=== PATIENT | male | born 1965 | race Caucasian/White ===

== ENCOUNTER 2019-06-01 03:05 | Emergency (ER) | payer OTHER, MEDICARE ==
[2019-06-01] MEDS ORDERED: Sodium Chloride 0.9% 1,000 ML IV ONE (03:37)
--- NOTE | 2019-06-01 03:48 | EDM.PDOC ---
ED HPI GENERAL MEDICAL PROBLEM - General Chief Complaint: Lower Extremity Injury/Pain Stated Complaint: [facility] Time Seen by Provider: 06/01/19 03:05 Source of Information: Reports: Patient, EMS History Limitations: Reports: No Limitations - History of Present Illness INITIAL COMMENTS - FREE TEXT/NARRATIVE: Arrival to ER. Patient fell on the ice about 1 hour prior to arrival. He had been drinking. He says he had consumed about 12 [place] [address]'s. Risk factor is alcohol intoxication. Treatment prior to arrival supportive care by EMS. The patient did notice that his foot was turned to 90 degrees and he straightened it himself. Left Ankle Pain Score (Numeric/FACES): 8 - Related Data Allergies Allergy/AdvReac Type Severity Reaction Status Date / Time No Known Allergies Allergy Verified 06/01/19 03:10 Home Meds: Home Meds . [No Known Home Meds] 06/01/19 [History] Past Medical History - History Comment History Comment: Denies any chronic medical problems or serious illnesses. Takes no medications. Had orthopedic procedures in the past. Knee surgeries. At age 6 reconstruction after a facial injury. Social & Family History - Tobacco Use Smoking Status *Q: Current Every Day Smoker Years of Tobacco use: 35 Packs/Tins Daily: 1 - Caffeine Use Caffeine Use: Reports: Coffee - Recreational Drug Use Recreational Drug Use: No Review of Systems - Review of Systems Review Of Systems: Comprehensive ROS is negative, except as noted in HPI. ED EXAM, GENERAL - Physical Exam Exam: See Below Exam Limited By: No Limitations General Appearance: Alert, WD/WN, No Apparent Distress (But uncomfortable due to his injury) Eye Exam: Bilateral Eye: PERRL Ears: Normal External Exam Nose: Normal Inspection Throat/Mouth: Normal Inspection Head: Atraumatic, Normocephalic, Other (SCARS across face from old injury) Neck: Supple, Non-Tender Respiratory/Chest: No Respiratory Distress, Lungs Clear Cardiovascular: Regular Rate, Rhythm GI/Abdominal: Soft, Non-Tender Back Exam: Normal Inspection Extremities: Other (Left ankle with displaced foot to about 90 degrees and completely unstable. There is a large open area medial malleolar area with bones exposed. Fortunately there is a bounding dorsalis pedis pulse. Left foot left ankle.) Neurological: Alert, Oriented Psychiatric: Normal Affect Skin Exam: Warm, Dry Course - Vital Signs Text/Narrative:: The area of injury was exposed washed out with sterile normal saline and the ankle was reduced with traction. As the patient was quite intoxicated we did not wish to do conscious sedation and he tolerated this reasonably well. A long posterior splint was placed. Patient requires a higher level of care with orthopedics not available here. He was accepted in transfer to [facility] in [place] by Dr. Wesley ER to ER transfer. Last Recorded V/S: Last Vital Signs Temp 36.2 C 06/01/19 03:11 Pulse 91 06/01/19 03:11 Resp 17 06/01/19 03:11 BP 127/93 H 06/01/19 03:11 Pulse Ox 94 L 06/01/19 03:11 - Orders/Labs/Meds Orders: Active Orders 24 hr Category Date Time Status Ankle 2V Lt [CR] Stat Exams 06/01/19 03:36 Ordered Ankle 2V Lt [CR] Stat Exams 06/01/19 03:36 Ordered Blood Alcohol [ETHANOL BLOOD MEDICAL] [CHEM] Stat Lab 06/01/19 03:39 Ordered CBC WITH AUTO DIFF [HEME] Stat Lab 06/01/19 03:39 Ordered COMPREHENSIVE METABOLIC PN,CMP [CHEM] Stat Lab 06/01/19 03:38 Ordered DRUG SCREEN, URINE [URCHEM] Stat Lab 06/01/19 03:38 Ordered UA RFX DARELL AND CULT IF INDIC [URIN] Stat Lab 06/01/19 03:38 Ordered Sodium Chloride 0.9% [Normal Saline] 1,000 ml Med 06/01/19 03:37 Ordered IV ONETIME Medication Orders Sodium Chloride (Normal Saline) 1,000 mls @ 1,000 mls/hr IV ONETIME ONE Stop: 06/01/19 04:36 Meds: Medications Generic Name Dose Route Start Last Admin Trade Name Freq PRN Reason Stop Dose Admin Sodium Chloride 1,000 mls @ 1,000 mls/hr 06/01/19 03:37 Normal Saline IV 06/01/19 04:36 ONETIME ONE Departure - Departure Time of Disposition: 03:54 Disposition: DC/Tfer to [facility] 02 Clinical Impression: Open fracture dislocation of ankle Qualifiers: Encounter type: initial encounter Open fracture type: open type III Laterality : left Qualified Code(s): S82.892C - Other fracture of left lower leg, initial encounter for open fracture type IIIA, IIIB, or IIIC - Discharge Information Sepsis Event Note - Evaluation Sepsis Screening Result: No Definite Risk - Focused Exam Vital Signs: Vital Signs Temp Pulse Resp BP Pulse Ox 06/01/19 03:11 36.2 C 91 17 127/93 H 94 L Date Exam was Performed: 06/01/19 Time Exam was Performed: 03:42 - My Orders Last 24 Hours: My Active Orders 06/01/19 03:36 Ankle 2V Lt [CR] Stat Ankle 2V Lt [CR] Stat 06/01/19 03:37 Sodium Chloride 0.9% [Normal Saline] 1,000 ml IV ONETIME 06/01/19 03:38 COMPREHENSIVE METABOLIC PN,CMP [CHEM] Stat DRUG SCREEN, URINE [URCHEM] Stat UA RFX DARELL AND CULT IF INDIC [URIN] Stat 06/01/19 03:39 Blood Alcohol [ETHANOL BLOOD MEDICAL] [CHEM] Stat CBC WITH AUTO DIFF [HEME] Stat - Assessment/Plan Last 24 Hours: My Active Orders 06/01/19 03:36 Ankle 2V Lt [CR] Stat Ankle 2V Lt [CR] Stat 06/01/19 03:37 Sodium Chloride 0.9% [Normal Saline] 1,000 ml IV ONETIME 06/01/19 03:38 COMPREHENSIVE METABOLIC PN,CMP [CHEM] Stat DRUG SCREEN, URINE [URCHEM] Stat UA RFX DARELL AND CULT IF INDIC [URIN] Stat 06/01/19 03:39 Blood Alcohol [ETHANOL BLOOD MEDICAL] [CHEM] Stat CBC WITH AUTO DIFF [HEME] Stat
[2019-06-01] MEDS ORDERED: Diphtheria,Pertussis(Acell),Tetanus Vaccine 0.5 ML Syringe IM ONE (04:01)
[2019-06-01] MEDS ORDERED: ceFAZolin 2 GM in Premix Bag 1 BAG IV ONE (04:08)
--- NOTE | 2019-06-02 07:16 | CR ---
Left ankle: Two views of the left ankle were obtained. Displaced bimalleolar fracture is noted with dislocation of the tibiotalar joint. Soft tissue injury is seen. Impression: 1. Displaced bimalleolar fracture with dislocation. 2. Soft tissue injury. Diagnostic code #5 This report was dictated in [place] Standard Time
--- NOTE | 2019-06-02 07:16 | CR ---
Left ankle: Two views of the left ankle were obtained. Comparison: Previous left ankle study performed earlier on same day (2:59 AM). Dislocation has been reduced. Continued subluxation of the tibia in a medial direction. Bimalleolar fractures are again noted showing continued displacement. Small bone fragment is noted off the anterior ankle joint believed to represent small displaced fracture fragment off the anterior tibia. Fiberglass splint is in place. No additional abnormality is seen other than soft tissue swelling. Impression: 1. Dislocation has been reduced with persistent subluxation as noted above. 2. Displaced bimalleolar fractures again noted with probable small displaced fracture fragment off the anterior tibia. Diagnostic code #3 This report was dictated in [place] Standard Time
== END 2019-06-01 04:35 ==
LOC: JD.ED 03:05
DX: S82.842C Displaced bimalleolar fracture of left lower leg, initial encounter for open fracture type IIIA, IIIB, or IIIC (principal); Z23 Encounter for immunization; F17.210 Nicotine dependence, cigarettes, uncomplicated; W00.0XXA Fall on same level due to ice and snow, initial encounter
CPT/HCPCS: 27840; 36415; 73600; 80053; 80306; 80320; 81003; 85025; 90471; 90715; 96365; 99285; J0690; J7030; 27818; 99283; G0480

== ENCOUNTER 2022-06-27 07:15 | Day surgery (SDC) | payer MEDICARE, MEDICAID ==
[~2022-06-27 07:15] MED LIST: Lactated Ringers 1,000 ML IV SCH; Lidocaine 1%/Sod Bicarbonate in NS 8.4% 1 ML Syringe IDERM PRN; Sodium Chloride 0.9% 10 ML Syringe FLUSH PRN; Sodium Chloride 0.9% 10 ML Syringe FLUSH SCH
[2022-06-27] MEDS ORDERED: Lidocaine 1% 2 ML ONE (08:16)
[2022-06-27] MEDS ORDERED: fentaNYL 100 MCG/2 ML SDV ONE (08:16)
[2022-06-27] MEDS ORDERED: Midazolam 1 MG/ML 2 ML SDV ONE (08:17)
[2022-06-27] MEDS ORDERED: Propofol 200 MG/20 ML SDV ONE (08:17)
== END 2022-06-27 09:45 | disposition home or self-care (01) ==
LOC: JD.SDS 07:15
PROVIDERS: ATTEND Surgery
DX: K22.89 Other specified disease of esophagus (principal); C15.9 Malignant neoplasm of esophagus, unspecified; I49.9 Cardiac arrhythmia, unspecified; K21.9 Gastro-esophageal reflux disease without esophagitis; M19.90 Unspecified osteoarthritis, unspecified site; Z87.891 Personal history of nicotine dependence; Z98.890 Other specified postprocedural states
CPT/HCPCS: 43239; J2250; J2704; J3010; J7120; J3490

== ENCOUNTER 2022-07-07 20:45 | Emergency (ER) | payer MEDICARE, MEDICAID ==
[2022-07-07] MEDS ORDERED: Sodium Chloride 0.9% 10 ML Syringe FLUSH PRN (22:06)
[2022-07-07] MEDS ORDERED: Ondansetron 4 MG/2 ML SDV IVPUSH ONE (22:06)
[2022-07-07] MEDS ORDERED: Lactated Ringers 1,000 ML IV SCH (22:15)
== END 2022-07-08 02:04 | disposition home or self-care (01) ==
LOC: JD.ED 20:45
DX: R10.84 Generalized abdominal pain (principal); R10.31 Right lower quadrant pain; Z87.891 Personal history of nicotine dependence
CPT/HCPCS: 36415; 74019; 80053; 85025; 85610; 96361; 96374; 99284; J2405; J3490; J7120; 99283

== ENCOUNTER 2022-08-30 02:52 | Inpatient (IN) | payer MEDICARE, MEDICAID ==
[2022-08-30 03:57] LABS: ESTIMATED GFR 58 mL/min (>60)
[2022-08-30] MEDS ORDERED: Morphine 2 MG/ML SYRINGE IVPUSH ONE (12:14)
[2022-08-30] MEDS ORDERED: Scopolamine 1.5 MG Transdermal Patch TOP ONE (12:14)
[2022-08-30] MEDS ORDERED: Ondansetron 4 MG/2 ML SDV IV PRN (12:58)
[2022-08-30] MEDS ORDERED: LORazepam 2 MG/ML SDV IVPUSH PRN (12:58)
[2022-08-30] MEDS ORDERED: Scopolamine 1.5 MG Transdermal Patch TRDERM PRN (12:58)
[2022-08-30] MEDS: HYDROmorphone 1 MG/ML Syringe IVPUSH PRN ×3 (14:03→21:45)
[2022-08-30] MEDS: Carboxymethylcellulose Sodium 1% Ophth Gel 15 ML Bottle EYEBOTH PRN ×2 (14:04→16:54)
== END 2022-08-30 22:10 | disposition expired | DRG 951 ==
LOC: JD.ED 02:52 → JD.MS 10:08 → UNDOADMIN 10:41 → JD.MS 10:41 → UNDODISIN 22:10
PROVIDERS: ADMIT Hospitalist; ATTEND Hospitalist
DX: Z51.5 Encounter for palliative care (principal); C79.9 Secondary malignant neoplasm of unspecified site; C15.9 Malignant neoplasm of esophagus, unspecified; E87.1 Hypo-osmolality and hyponatremia; R64 Cachexia; Z68.1 Body mass index [BMI] 19.9 or less, adult; Z66 Do not resuscitate; R09.02 Hypoxemia; I95.9 Hypotension, unspecified; K21.9 Gastro-esophageal reflux disease without esophagitis; D69.6 Thrombocytopenia, unspecified; E87.5 Hyperkalemia; Z98.890 Other specified postprocedural states
CPT/HCPCS: 36415; 71045; 71045-26; 80053; 85025; 99284; 99285; A9270-GY; J1170; J2270